=== PATIENT | female | born 1950 | race Caucasian/White ===

== ENCOUNTER 2019-12-07 12:40 | Emergency (ER) | payer OTHER ==
[~2019-12-07] VITALS: Ht 157.5 cm; Wt 66.7 kg
[2019-12-07 12:47] VITALS: BP 143/61; Ht 157.5 cm; Wt 66.7 kg
== END 2019-12-07 14:59 | disposition home or self-care (01) ==
LOC: ED 12:40
DX: J40 Bronchitis, not specified as acute or chronic (principal); F17.210 Nicotine dependence, cigarettes, uncomplicated; G47.00 Insomnia, unspecified; I10 Essential (primary) hypertension; E11.9 Type 2 diabetes mellitus without complications; Z86.73 Personal history of transient ischemic attack (TIA), and cerebral infarction without residual deficits; Z98.890 Other specified postprocedural states
CPT/HCPCS: 99406; J7512; J7613; J7644; Q0092